=== PATIENT | female | born 1945 | race Caucasian/White ===

== ENCOUNTER 2018-03-10 14:12 | Emergency (ER) | payer MEDICARE ==
[~2018-03-10] VITALS: Ht 167.6 cm; Wt 63.5 kg
[2018-03-10 15:04] LABS: Basophils # (auto) 0.1 uL; Eosinophils # (auto) 0.1 uL; Lymphocytes # (auto) 0.8 uL; Monocytes # (auto) 0.9 uL; White Blood Cell 9.1 10^3/uL (4.4-10.8)
[2018-03-10 15:07] LABS: Basophils % (auto) 0.9 % (0.0-2.0); Eosinophils % (auto) 1.3 % (0.0-7.0); Hematocrit 40.3 % (36.0-46.0); Lymphocytes % (auto) 9.3 % (10.0-50.0); Mean Corpuscular Hemoglobin 33.3 pg (28.0-32.0); Mean Corpuscular Hgb Conc. 34.9 g/dL (32.0-36.0); Mean Corpuscular Volume 95.5 fL (80.0-100.0); Monocytes % (auto) 9.9 % (0.0-12.0); Neutrophils # (auto) 7.1 uL; Neutrophils % (auto) 78.6 % (37.0-80.0); Platelet Count (auto) 496 10^3/uL (140-450); Red Blood Cells 4.22 10^6/uL (4.0-5.20)
[2018-03-10 15:23] LABS: INR 1.01 (0.9-1.15); Partial Thromboplastin Time 27.1 sec (23.78-33.04); Prothrombin Time 10.8 sec (9.27-12.13)
[2018-03-10] MEDS ORDERED: LABETALOL HCL 5 MG/ML ML 20ML VIAL IV ONE (15:30)
[2018-03-10 15:38] LABS: Albumin 2.3 g/dL (3.4-5.0); Calcium 8.4 mg/dL (8.5-10.1); Potassium 4.1 mmol/L (3.5-5.1)
[2018-03-10 15:40] LABS: BUN/Creatinine Ratio 54.8
[2018-03-10 15:42] LABS: Bilirubin, Total 0.4 mg/dL (0.2-1.0); Total Protein 6.1 g/dL (6.4-8.2)
[2018-03-10] MEDS ORDERED: PROPOFOL 100 ML IV SCH (15:46)
[2018-03-10] MEDS ORDERED: ETOMIDATE (2MG/ML) 20ML VIAL IV ONE ×2 (16:26→16:45)
[2018-03-10] MEDS ORDERED: SUCCINYLCHOLINE CHLORIDE 20 MG/ML 10ML VIAL IV ONE ×2 (16:26→16:45)
[2018-03-10 16:30] VITALS: BP 120/80
== END 2018-03-10 16:53 ==
LOC: EDBD 14:12 → ER 14:12
DX: G93.41 Metabolic encephalopathy (principal); I10 Essential (primary) hypertension; Z88.8 Allergy status to other drugs, medicaments and biological substances
CPT/HCPCS: 31500; 36415; 36600; 51702; 70450; 71250; 80053; 82805; 83605; 83880; 84484; 85025; 85610; 85730; 87040; 87077; 87186; 93005; 96374; 99291; J0330